=== PATIENT | male | born 1955 | race Caucasian/White ===

== ENCOUNTER 2020-03-27 19:27 | Emergency (ER) | payer SELFPAY ==
[~2020-03-27 19:27] MED LIST: ASPIRIN325 MG PO; K-PHO1 PO; LASIX20 MG PO; METFORMIN500 M1 PO; METOPROLOL50 MG PO; TRICOR145 MG PO; ZOCOR20 MG PO
[2020-03-27] MEDS ORDERED: ATENOLOL25 MG PO (19:51)
[2020-03-27] MEDS ORDERED: ISOSORB MONO20 MG PO (19:51)
[2020-03-27 20:14] LABS: HEMATOCRIT 43.6 % (39.0-50.0); HEMOGLOBIN 15.5 g/dl (14.0-18.0); MEAN CELL VOLUME 87.4 fL CALC (80.0-100.0); MEAN CORPUSCULAR HGB 31.1 pG CALC (26.0-32.0); MEAN CORPUSCULAR HGB CONC 35.6 g/dL CAL (32.0-36.0); NEUT# 6.25 thou/uL (1.82-7.42); RED BLOOD COUNT 4.99 mill/uL (4.70-6.10); RED CELL DISTRI WIDTH 12.6 % (11.5-15.5)
[2020-03-27 20:35] LABS: ACT PARTIAL THROMBO TIME 27.6 SECONDS (20.0-32.5); PROTHROMBIN TIME 10.5 SECONDS (9.0-12.5)
[2020-03-27 20:36] LABS: ALBUMIN 4.3 g/dL (3.2-5.0); ALKALINE PHOSPHATASE 80 u/l (38-126); ANION GAP 16 (6-22 (CALC)); BILIRUBIN, TOTAL 0.4 mg/dL (0.0-1.4); BUN 17 mg/dL (8-23); BUN/CREATININE RATIO 19 (12-20 (CALC)); CARBON DIOXIDE 20 mmol/l (22-30); CHLORIDE 105 mmol/l (95-108); CREATININE 0.9 mg/dL (0.7-1.3); GFR > 60 ML/MIN (>=60 (CALC)); GFR FOR AFR.AMER. > 60 ML/MIN (>=60 (CALC)); POTASSIUM 4.2 mmol/l (3.5-5.1); SGOT/AST 38 u/l (19-48); SODIUM 137 mmol/l (137-146); TOTAL PROTEIN 7.4 g/dL (6.3-8.2)
[2020-03-27] MEDS ORDERED: ELIQUIS5 MG PO (21:54)
[2020-03-27 22:34] VITALS: BP 145/87
== END 2020-03-27 22:34 | disposition home or self-care (01) | DRG 301 ==
LOC: ED 19:27
PROVIDERS: Family Medicine
DX: I82.431 Acute embolism and thrombosis of right popliteal vein (principal); E11.9 Type 2 diabetes mellitus without complications; I10 Essential (primary) hypertension; J44.9 Chronic obstructive pulmonary disease, unspecified; I25.2 Old myocardial infarction